=== PATIENT | male | born 1980 | race Hispanic/Latino ===

== ENCOUNTER 2018-12-07 15:00 | Outpatient (CLI) | payer OTHER | END 2018-12-07 15:01 | disposition home or self-care (01) | LOC: SLEEPLAB 15:00 | PROVIDERS: ATTEND Family Medicine | DX: G47.33 Obstructive sleep apnea (adult) (pediatric) (principal); G47.9 Sleep disorder, unspecified; R06.83 Snoring; G47.00 Insomnia, unspecified; E66.9 Obesity, unspecified; Z68.29 Body mass index [BMI] 29.0-29.9, adult | CPT/HCPCS: 95806 ==

== ENCOUNTER 2019-03-24 20:30 | Outpatient (CLI) | payer OTHER | END 2019-03-24 20:31 | disposition home or self-care (01) | LOC: SLEEPLAB 20:30 | PROVIDERS: ATTEND Family Medicine | DX: G47.33 Obstructive sleep apnea (adult) (pediatric) (principal); R06.83 Snoring | CPT/HCPCS: 95811 ==

== ENCOUNTER 2021-03-19 20:09 | Emergency (ER) | payer BC | END 2021-03-19 21:35 | disposition home or self-care (01) | LOC: ERS 20:09 | DX: S60.012A Contusion of left thumb without damage to nail, initial encounter (principal); W23.0XXA Caught, crushed, jammed, or pinched between moving objects, initial encounter ==

== ENCOUNTER → 2021-12-29 | Day surgery (SDC) | payer BC ==
[2021-12-29 14:08] VITALS: BMI 27.3
== END | disposition home or self-care (01) ==
LOC: SDC 07:21
PROVIDERS: ATTEND Specialist
DX: J03.90 Acute tonsillitis, unspecified (principal); J35.01 Chronic tonsillitis; B37.0 Candidal stomatitis; Z53.9 Procedure and treatment not carried out, unspecified reason; Z79.899 Other long term (current) drug therapy

== ENCOUNTER 2021-12-31 07:25 | Day surgery (SDC) | payer BC ==
[2021-12-29 15:50] VITALS: BMI 27.4
[2021-12-31] MEDS ORDERED: fentaNYL PF 100 MCG/2 ML SYRINGE ONE (08:44)
[2021-12-31] MEDS ORDERED: Ferric Subsulfate (ASTRINGYN) 8 GM VIAL ONE (08:45)
[2021-12-31] MEDS ORDERED: PROPOFOL 200 MG/20 ML VIAL ONE (09:26)
[2021-12-31] MEDS ORDERED: Ondansetron PF 4 MG/2 ML Vial ONE (09:26)
[2021-12-31] MEDS ORDERED: Dexamethasone 20 MG/5 ML VIAL ONE (09:26)
[2021-12-31] MEDS ORDERED: FENTANYL 50 MCG/ML 1 ML VIAL ONE ×3 (10:31→10:54)
[2021-12-31] MEDS ORDERED: Hydrocodone-Acetamin 15 ML UDCUP ONE (11:44)
== END 2021-12-31 12:30 | disposition home or self-care (01) ==
LOC: SDC 07:25
PROVIDERS: ATTEND Specialist
PROC: 0CTPXZZ Resection of Tonsils, External Approach (ICD-10-PCS; principal; 2021-12-31)
DX: J03.90 Acute tonsillitis, unspecified (principal); J35.01 Chronic tonsillitis; B37.0 Candidal stomatitis; G47.33 Obstructive sleep apnea (adult) (pediatric); Z86.14 Personal history of Methicillin resistant Staphylococcus aureus infection; Z86.16 Personal history of COVID-19; Z79.899 Other long term (current) drug therapy
CPT/HCPCS: 88304; J1100; J2405; J2704; J3010